=== PATIENT | male | born 1985 | race Caucasian/White ===

== ENCOUNTER 2016-10-10 14:50 | Emergency (ER) | payer OTHER ==
[~2016-10-10] VITALS: Ht 185.4 cm; Wt 104.3 kg
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
[2016-10-10] MEDS ORDERED: OMEPRAZOLE40 M1 PO (17:23)
[2016-10-10] MEDS ORDERED: VITAMIN B-125000 MCG PO (17:23)
[2016-10-10 17:40] VITALS: BP 124/76
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
[2016-10-10] MEDS ORDERED: HYDROCODON-ACE1 EAC2 PO (18:58)
[2016-10-10] MEDS ORDERED: IBUPROFEN800 M1 PO (18:58)
[2016-10-10] MEDS ORDERED: CYCLOBENZAPRINE10 M1 PO (18:58)
== END 2016-10-10 19:16 ==
LOC: ERH 14:50
DX: S16.1XXA Strain of muscle, fascia and tendon at neck level, initial encounter (principal); V89.2XXA Person injured in unspecified motor-vehicle accident, traffic, initial encounter; Y93.9 Activity, unspecified; Y92.411 Interstate highway as the place of occurrence of the external cause
CPT/HCPCS: 72110